=== PATIENT | female | born 1955 | race Caucasian/White ===

== ENCOUNTER 2019-02-07 15:43 | Emergency (ER) | payer BC, SELFPAY ==
--- NOTE | 2019-02-07 15:52 | NUR.NOTE ---
yesterday morning pt noticed buringin in both eyes reddnes and tears. mt has not attempted to rinse eyes. pt did start new antibiotic 12 hrs prior to eye problem
[2019-02-07 15:55] VITALS: BP 125/81; PULSE 85; RESP 17; TEMP 37.6; O2SAT 95
--- NOTE | 2019-02-07 16:17 | W.ED.GENAD ---
Discharge Plan Disposition Patient Disposition: HOME Condition: Stable Discharge Details Chief Complaint: EyeProblem Clinical Impression: Conjunctivitis Primary Care Provider: None,None ED Provider: Phillip Kirkland Home Meds and New Rx's Prescriptions: Continued nitrofurantoin monohyd/m-cryst 100 mg Capsule 100 mg PO Q12H RF: 0 Discharge Instructions Instructions: Conjunctivitis (ED) Additional Instructions: Please purchase [id number] dry reddened eyes drops and use as directed on packaging. If you start noticing crusting of your eyes and mucus drainage please start the antibiotic ointment as recommended. Please refrain from using her contacts for the 5 days and clean them well. Follow-up with your local journal box inspector for reassessment as needed. Referrals: Primary Care Provider [Outside] (As needed for reassessment) Discharge Data Discharge Date/Time-TO BE ENTERED AT DEPARTURE: 02/07/19 17:35 Medical Decision Making Patient presenting to the emergency department for chief complaint of red itchy irritated eyes. Patient states that yesterday morning this started to occur approximately 20 minutes after putting in her contacts. 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 Patient denies any fever chills, loss of vision, headache, or other focal neurological deficits or changes. Physical exam shows bilateral irritated sclera with injection and mild conjunctival erythema otherwise no exudates, and otherwise unremarkable exam. Question of irritant conjunctivitis given this occurred with contact lens use but patient did state that she remove the lenses and it did seem to help versus bacterial source I did have patient's eyes irrigated after numbing with tetracaine. Patient did state that this did seem to improve her symptoms. Patient was encouraged to use ifca-ggs-[id number] drops for her eyes but given that she is out of town and has no close follow-up patient was given erythromycin ointment and informed that she should use this if her symptoms worsen, she starts having purulent drainage or exudates, or not improving on the eyedrops. Patient was encouraged not to use contact lenses for the next 5 days and to thoroughly clean them and disinfect them as she reports they are not disposable. Patient to follow-up with primary care or ophthalmology when she returns home. After discussion of diagnosis and plan of care patient has no further needs, questions, or concerns and states clear understanding to return to the emergency department for any worsening symptoms. HPI General Mode of arrival: ambulatory. Date/Time Provider Initiated Documentation: 02/07/19 15:46. Limitations to Documentation: no limitations. Information obtained by: patient and RN notes reviewed. History of Present Illness 63 year old F presents to the emergency department with the chief complaint of eye discomfort/irritation, described as moderate, with intensity rated at 3. and is localized to the eyes. Patient started experiencing this day(s) (2) No relieving factors improve symptom(s), Patient did receive the following treatments prior to arrival, none Related Data Home Medications Medication Instructions Recorded Confirmed nitrofurantoin monohyd/m-cryst 100 mg PO Q12H 02/07/19 02/07/19 General Stated Complaint: EyeProblem ESPINOZA: 4 Review of Systems Constitutional Denies chills, Denies fever(s) and Denies headache(s) Eyes Reports as per HPI, Reports blurry vision, Denies change in vision, Denies eye discharge, Reports irritation, Reports itchy eyes, Denies eye pain, Reports requires corrective lenses and Denies seeing flashes ENT Denies headache(s) Integumentary/Breasts Denies rash Neurologic Denies headache(s) and Denies sensory deficit Allergic/Immunologic Reports itchy eyes PFSH Social History Smoking/Tobacco Use Status: Never Alcohol Intake: current Alcohol Intake frequency: a few times a month Drug use: Never Substance use type: does not use Do you feel safe at home: Yes Do you feel safe in your relationship?: Yes Exam Const General: cooperative, no acute distress and not ill appearing Orientation: alert, awake and oriented x3 Eyes Alignment and Position: alignment normal Periorbital: periorbital findings normal Eyelids: eyelids normal Conjunctivae: conjunctivae normal Sclera: scleral abnormality bilaterally scleral injection diffuse Cornea: corneas normal Pupils: PERRL EOM: EOM intact bilaterally and No nystagmus Resp Effort & Inspection: normal respiratory effort, able to speak in complete sentences and no respiratory distress Neuro General: alert, awake, oriented x3, gait normal, moves all extremities, no meningeal signs and no focal motor deficits Cranial Nerves: no nystagmus Course Vital Signs Temperature 37.6 C H 02/07/19 15:55 Pulse 85 02/07/19 15:55 Respiratory Rate 17 02/07/19 15:55 Blood Pressure 125/81 02/07/19 15:55 Pulse Oximetry 95 02/07/19 15:55 Temperature 37.6 C H 02/07/19 15:55 Temperature Source Skin 02/07/19 15:55 Pulse 85 02/07/19 15:55 Respiratory Rate 17 02/07/19 15:55 Blood Pressure 125/81 02/07/19 15:55 Blood Pressure Position Supine 02/07/19 15:55 Pulse Oximetry 95 02/07/19 15:55 Oxygen Delivery Method Room Air 02/07/19 15:55 Oxygen Flow Rate 0 02/07/19 15:55 Pain Level 3 02/07/19 15:55
--- NOTE | 2019-02-07 16:21 | ED.GENADUL_ITS ---
Discharge Plan Disposition Patient Disposition: HOME Condition: Stable Discharge Details Chief Complaint: EyeProblem Clinical Impression: Conjunctivitis Primary Care Provider: None,None ED Provider: Phillip Kirkland Home Meds and New Rx's Prescriptions: Continued nitrofurantoin monohyd/m-cryst 100 mg Capsule 100 mg PO Q12H RF: 0 Discharge Instructions Instructions: Conjunctivitis (ED) Additional Instructions: Please purchase hywh-shg-wqhmcjy dry reddened eyes drops and use as directed on packaging. If you start noticing crusting of your eyes and mucus drainage please start the antibiotic ointment as recommended. Please refrain from using her contacts for the 5 days and clean them well. Follow-up with your local certified professional controller for reassessment as needed. Referrals: Primary Care Provider [Outside] (As needed for reassessment) Discharge Data Discharge Date/Time-TO BE ENTERED AT DEPARTURE: 02/07/19 17:35 Medical Decision Making Patient presenting to the emergency department for chief complaint of red itchy irritated eyes. Patient states that yesterday morning this started to occur approximately 20 minutes after putting in her contacts. 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 Patient denies any fever chills, loss of vision, headache, or other focal neurological deficits or changes. Physical exam shows bilateral irritated sclera with injection and mild conjunctival erythema otherwise no exudates, and otherwise unremarkable exam. Question of irritant conjunctivitis given this occurred with contact lens use but patient did state that she remove the lenses and it did seem to help versus bacterial source I did have patient's eyes irrigated after numbing with tetracaine. Patient did state that this did seem to improve her symptoms. Patient was encouraged to use uvlr-yhh-hzuiwrl drops for her eyes but given that she is out of town and has no close follow-up patient was given erythromycin ointment and informed that she should use this if her symptoms worsen, she starts having purulent drainage or exudates, or not improving on the eyedrops. Patient was encouraged not to use contact lenses for the next 5 days and to thoroughly clean them and disinfect them as she reports they are not disposable. Patient to follow-up with primary care or ophthalmology when she returns home. After discussion of diagnosis and plan of care patient has no further needs, questions, or concerns and states clear understanding to return to the emergency department for any worsening symptoms. HPI General Mode of arrival: ambulatory . Date/Time Provider Initiated Documentation: 02/07/19 15:46 . Limitations to Documentation: no limitations . Information obtained by: patient and RN notes reviewed . History of Present Illness 63 year old F presents to the emergency department with the chief complaint of eye discomfort/irritation, described as moderate, with intensity rated at 3. and is localized to the eyes. Patient started experiencing this day(s) (2) No relieving factors improve symptom(s), Patient did receive the following treatments prior to arrival, none Related Data Home Medications Medication Instructions Recorded Confirmed nitrofurantoin monohyd/m-cryst 100 mg PO Q12H 02/07/19 02/07/19 General Stated Complaint: EyeProblem ESPINOZA: 4 Review of Systems Constitutional Denies chills, Denies fever(s) and Denies headache(s) Eyes Reports as per HPI, Reports blurry vision, Denies change in vision, Denies eye discharge, Reports irritation, Reports itchy eyes, Denies eye pain, Reports requires corrective lenses and Denies seeing flashes ENT Denies headache(s) Integumentary/Breasts Denies rash Neurologic Denies headache(s) and Denies sensory deficit Allergic/Immunologic Reports itchy eyes PFSH Social History Smoking/Tobacco Use Status: Never Alcohol Intake: current Alcohol Intake frequency: a few times a month Drug use: Never Substance use type: does not use Do you feel safe at home: Yes Do you feel safe in your relationship?: Yes Exam Const General: cooperative, no acute distress and not ill appearing Orientation: alert, awake and oriented x3 Eyes Alignment and Position: alignment normal Periorbital: periorbital findings normal Eyelids: eyelids normal Conjunctivae: conjunctivae normal Sclera: scleral abnormality bilaterally scleral injection diffuse Cornea: corneas normal Pupils: PERRL EOM: EOM intact bilaterally and No nystagmus Resp Effort & Inspection: normal respiratory effort, able to speak in complete sentences and no respiratory distress Neuro General: alert, awake, oriented x3, gait normal, moves all extremities, no meningeal signs and no focal motor deficits Cranial Nerves: no nystagmus Course Vital Signs Temperature 37.6 C H 02/07/19 15:55 Pulse 85 02/07/19 15:55 Respiratory Rate 17 02/07/19 15:55 Blood Pressure 125/81 02/07/19 15:55 Pulse Oximetry 95 02/07/19 15:55 Temperature 37.6 C H 02/07/19 15:55 Temperature Source Skin 02/07/19 15:55 Pulse 85 02/07/19 15:55 Respiratory Rate 17 02/07/19 15:55 Blood Pressure 125/81 02/07/19 15:55 Blood Pressure Position Supine 02/07/19 15:55 Pulse Oximetry 95 02/07/19 15:55 Oxygen Delivery Method Room Air 02/07/19 15:55 Oxygen Flow Rate 0 02/07/19 15:55 Pain Level 3 02/07/19 15:55
[2019-02-07] MEDS: Tetracaine 0.5% 4 ML BTL (17:23)
[2019-02-07] MEDS: Erythromycin Ophth Oint 3.5 GM TUBE OP (17:35)
[2019-02-07 17:36] VITALS: BP 125/81; PULSE 85; RESP 17; TEMP 37.5; O2SAT 95
== END 2019-02-07 17:35 | disposition home or self-care (01) ==
PROVIDERS: Emergency Provider Nurse Practitioner Family
DX: H10.9 Unspecified conjunctivitis (principal)
CPT/HCPCS: 99283

== ENCOUNTER 2022-09-23 18:24 | Emergency (ER) | payer MEDICARE, SELFPAY ==
[2022-09-23 18:28] VITALS: BP 139/74; PULSE 97; RESP 18; TEMP 36.9; O2SAT 97
--- NOTE | 2022-09-23 19:02 | W.ED.GENAD ---
Discharge Plan Disposition Patient Disposition: Home Condition: Good Discharge Details Clinical Impression: Otitis media, Sinusitis, Cellulitis, Abscess Primary Care Provider: None,None ED Provider: Leeanna Mcfarlane Discharge Instructions Instructions: Amoxicillin/Clavulanate Potassium (By mouth), Ear Infection (ED), Abscess (ED) Additional Instructions: Your exam is concerning for an ear infection as well small area of abscess and cellulitis on the right side of your back. Please stop the azithromycin and use the Augmentin as prescribed. To help prevent any GI upset, please take with food and continue with your probiotic. Please continue to encourage hydration. You may use Tylenol and ibuprofen as needed for discomfort. Please take as directed on the packaging. This can be quite successful and they are taking at the same time. In regard to the area on her back, this is opened with a needle today and this antibiotic should cover any continued infection. Please keep covered with a Band-Aid to help prevent any further rubbing from your clothing . However, please take the bandage off and take a shower and clean with running water and soap. Please follow-up with your primary care in 1 week for reevaluation. If you develop any new or worsening symptoms please seek care urgently once again. Discharge Data Discharge Date/Time-TO BE ENTERED AT DEPARTURE: 09/23/22 19:37 Medical Decision Making Patient is a pleasant 67-year-old female, accompanied by her , with chief complaint of right ear pain. She reports that about 11 days ago she began having right Sinus pain. She states that she was started on azithromycin yesterday. States that despite this, pain has persisted and now she has severe right ear pain. Prior to this sinus pain and she reports that she had a common cold. Her cough and congestion has completely cleared. She denies any recent fevers or chills. Also endorsing a infection to the right side of her back. States that began 2 days ago. On exam, patient appears nontoxic. Vital signs are stable. She has a bulging erythematous right tympanic membrane with the patient purulent discharge behind the TM. The left is clear. She continues to have pain over the right maxillary sinus. ENT exam and lung exam otherwise normal. She does not have a small 6 mm abscess on the right side of her back with a small area of surrounding erythema. Tender to the touch. No discharge able to be expressed. Plan to transition the patient off of the azithromycin and onto Augmentin as this will likely work better for her. She does have penicillin listed as an allergy but reports that that typically all antibiotics can cause some GI upset. Prefers to use azithromycin for this reason. However, I do not believe with the sinusitis and otitis or cellulitis and that this is sufficient to cover these things. Considered other antibiotics but given their side effect profile as well, I feel that Augmentin is likely the best course for her. She is never had a true allergic reaction to the penicillin. Advised that she eat when taking the antibiotic as well as take a probiotic. Regard to the small abscess, patient I discussed risk/benefits as well as expected procedural steps associated with needle aspiration and slight opening with an 18-gauge. Patient voices understanding and wishes to proceed. Please see procedure note. Patient tolerated this well. We did discuss the use of anesthetic prior but patient would prefer just to have needle aspiration completed. Is to perform using standard sterile technique. Patient tolerated that well and a sterile bandage was placed over this. We will begin the patient on the Augmentin. Encourage that she continue with the probiotic. Encourage hydration. We discussed continued care of the small abscess. Encourage follow-up with primary care for reevaluation. Return precautions were discussed. I do want her to have the ear rechecked by her primary care in particular as she does have difficulty with hearing on the contralateral side. All of her questions and concerns were addressed and she is in agreement with this plan. Sign Out No HPI General Date/Time Provider Initiated Documentation: 09/23/22 19:02. Limitations to Documentation: no limitations. Information obtained by: patient, family and RN notes reviewed. History of Present Illness 67 year old F presents to the emergency department with the chief complaint of right ear pain, described as severe, Quality is described as stabbing, and is localized to the face (right ear). Patient reports no radiation. Patient started experiencing this day(s) (1) and it has been constant. No relieving factors improve symptom(s), No exacerbating factors reported . Patient notes other (viral URI with sinusitis recently, on abx). Patient did receive the following treatments prior to arrival, other (on Azithromycin for sinusitis, started yesterday) Related Data Allergies Allergy/AdvReac Type Severity Reaction Status Date / Time Penicillins AdvReac Unverified 09/23/22 18:36 General Stated Complaint: GenMedical ESPINOZA: 4 Review of Systems Constitutional Constitutional: Reports as per HPI and Denies headache(s) Eyes Eyes: Reports as per HPI, Denies eye discharge and Denies irritation ENT Ears, Nose, Mouth, and Throat: Reports as per HPI and Denies headache(s) Cardiovascular Cardiovascular: Reports as per HPI, Denies chest pain and Denies dyspnea Respiratory Respiratory: Reports as per HPI and Denies dyspnea Gastrointestinal Gastrointestinal: Reports as per HPI, Denies change in bowel habits, Denies nausea and Denies vomiting Integumentary/Breasts Skin/Breast: Reports as per HPI and Denies rash Neurologic Neurologic: Reports as per HPI and Denies headache(s) PFSH All Active Problems (Updated 09/23/22 @ 19:29 by VIRAJ Pineda) Otitis media (Acute) Sinusitis (Acute) Cellulitis (Acute) Abscess (Acute) Social History Smoking/Tobacco Use Status: Never Smoking risk assessment performed?: Yes Alcohol Intake: current Alcohol Intake frequency: a few times a month Drug use: Never Substance use type: does not use Do you feel safe at home: Yes Do you feel safe in your relationship?: Yes Exam Const General: cooperative, healthy appearing, uncomfortable (holding right ear), no acute distress, well developed and well groomed Nutritional Appearance: average body habitus and well nourished Orientation: alert and awake [facility] Head: normal to inspection, normocephalic and atraumatic Ears: hearing grossly normal bilaterally, external ears normal, right TM abnormal (bulging, erythematous right TM), TM normal on the left and mastoids normal General nose exam: external nose normal and nares normal Face and sinus: normal facial exam, sinuses nontender and face symmetric Mouth: oral mucosae normal, lip normal, tongue normal, oropharynx normal and moist mucous membranes Teeth and gingiva: dentition normal Throat: posterior oropharynx normal, tonsils normal and uvula midline Eyes General: appearance normal, both eyes and all related structures Neck Neck: normal visual inspection, full ROM, no lymphadenopathy and no meningeal signs Resp Effort & Inspection: normal respiratory effort, able to speak in complete sentences and no respiratory distress Auscultation: clear to auscultation bilaterally, no rales, no rhonchi and no wheezes Cardio Rate: regular rate Rhythm: regular rhythm Heart Sounds: S1 normal and S2 normal Back/Spine/Pelvis Back/spine/pelvis image: 1. Area of erythema with central raised, white area. Fluctuant and tender. <1cm in diameter. Skin General skin exam: erythema Neuro General: patient alert and patient awake Cognition: normal cognition Speech: speech normal Gait: normal gait Psych Appearance: grossly normal and well kempt Mental Status: mental status grossly normal Speech and Movement: speech and movement normal Course Vital Signs Vital signs: Vital Signs Temperature 36.9 C 09/23/22 18:28 Pulse 97 H 09/23/22 18:28 Respiratory Rate 18 09/23/22 18:28 Blood Pressure 139/74 09/23/22 18:28 Pulse Oximetry 97 09/23/22 18:28 Temperature 36.9 C 09/23/22 18:28 Temperature Source Oral 09/23/22 18:28 Pulse 97 H 09/23/22 18:28 Respiratory Rate 18 09/23/22 18:28 Respiratory Effort Non-Labored 09/23/22 18:34 Blood Pressure 139/74 09/23/22 18:28 Blood Pressure Position Sitting 09/23/22 18:28 Pulse Oximetry 97 09/23/22 18:28 Oxygen Delivery Method Room Air 09/23/22 18:28 Oxygen Flow Rate 0 09/23/22 18:28 Pain Level 9 09/23/22 18:28 Procedures Abscess I/D Site: Back Side (if applicable): Right Sedation/analgesia: None Local Anesthetic: Other Anesthetic (none) Technique: Needle Aspiration Amount of fluid expressed (mL): 1 Irrigation: No Packing used?: None Complications: Other (none)
[2022-09-23] MEDS: Acetaminophen 500 MG TAB 1000 MG PO (19:35)
[2022-09-23] MEDS: Amox. 875/Clav. 125, 2 TABS/BTL 1 TAB PO (19:35)
--- NOTE | 2022-09-23 19:35 | NUR.NOTE ---
Referral faxed to [facility], patient new to the area and told provider she has had her records sent to [facility] but won't be seen for quite some time. Patient is hearing impaired and has an otitis media, sinusitis and cellulitis. Provider would like her seen within the next week if at all possible.Nursing Note:
== END 2022-09-23 19:37 | disposition home or self-care (01) ==
PROVIDERS: Emergency Provider Physician Assistant
DX: H66.91 Otitis media, unspecified, right ear (principal); L03.312 Cellulitis of back [any part except buttock and flank]; L02.212 Cutaneous abscess of back [any part, except buttock and flank]
CPT/HCPCS: 10060; 99283

== ENCOUNTER 2022-12-06 01:52 | Outpatient (CLI) | payer MEDICARE, SELFPAY ==
[2022-12-06 15:38] LABS: Abs Immature Grans 0.03 10^3/uL (0.0-0.06); Absolute Basophil Count 0.02 10^3/uL (0.0-0.2); Absolute Eosinophil Count 0.08 10^3/uL (0.0-0.7); Absolute Lymphocyte Count 1.59 10^3/uL (1.2-3.4); Absolute Monocyte Count 0.28 10^3/uL (0.1-0.8); Absolute Neutrophil Count 4.07 10^3/uL (1.2-6.7); Basophils % 0.3; Eosinophils % 1.3; HCT 46.6 % (36.0-46.0); HGB 15.7 g/dL (11.2-15.7); Immature Grans % 0.5; Lymphocytes % 26.2; MCH 31.2 pg (27.0-33.0); MCHC 33.7 % (32.0-36.0); MCV 93 fL (80-95); MPV 8.6 fL (8.0-11.0); Monocytes % 4.6; Neutrophils % 67.1; Platelet Count 178 10^3/uL (130-400); RBC 5.04 10^6/uL (3.93-5.22); RDW-SD 41.2 fL; WBC 6.07 10^3/uL (4.4-10.8)
[2022-12-06 17:23] LABS: ALT 23 U/L (14-59); AST 20 U/L (15-37); Albumin 3.9 g/dL (3.4-5.0); Alkaline Phosphatase 71 U/L (46-116); Anion Gap 8.3 mmol/L (3-11); BUN 11 mg/dL (7-18); Bilirubin, Total 0.9 mg/dL (0.2-1.0); CO2 26.7 mmol/L (21.0-32.0); CREATININE 0.8 mg/dL (0.55-1.02); Chloride 104 mmol/L (98-107); Estimated GFR 80.71 (mL/min/1.73m2); Glucose 78 mg/dL (74-106); Potassium 3.7 mmol/L (3.5-5.1); Sodium 139 mmol/L (136-145); Total Protein 7.2 g/dL (6.4-8.2)
== END 2022-12-06 01:53 | disposition home or self-care (01) ==
LOC: LBO 01:52
PROVIDERS: PCP Family Medicine; Visit Provider Family Medicine
DX: K21.9 Gastro-esophageal reflux disease without esophagitis (principal)
CPT/HCPCS: 36415; 80053; 80061; 85025

== ENCOUNTER → 2023-08-31 02:44 | Outpatient (CLI) | payer MEDICARE, SELFPAY ==
--- NOTE | 2023-08-31 | DI.MAMMO_ITS ---
Exam(s) MAMMO SCREENING EXAM: MAMMO SCREENING CLINICAL HISTORY: SCREENING, Z12.31 TECHNIQUE: Mammograms were interpreted according to the usual protocol including computer analysis w [employer] CAD system, tomosynthesis and C-view imaging. COMPARISON: 2017 from [facility] in [facility] FINDINGS: The breasts are composed of heterogeneously dense fibroglandular densities, Breast Density category C . No suspicious masses or suspicious microcalcifications are seen. No skin thickening or abnormal axillary lymph nodes are seen. There has been no significant change from prior exam. IMPRESSION: BI-RADS Category 1, Negative mammogram. Yearly screening mammography is recommended. Breast Density Category C, heterogeneously Dense. The mammogram demonstrates the patient's breast tissue is dense. Dense breast tissue is very common a nd is not abnormal but dense breast tissue can make it harder to find cancer on a mammogram. Also, de nse breast tissue may increase breast cancer risk. This information about the result of the mammogram report was provided to the patient to raise their awareness. Use this report when you speak with the patient about their risks for breast cancer, which includes their family history. At that time, you may recommend additional screening tests (Ultrasound or MRI) as they might be useful based on their r isk. A negative radiographic report should not delay biopsy if a dominant or clinically suspicious mass is present. Up to ten percent of cancers are not identified on mammography. A negative report may reinforce clinical impression. Adenosis and dense breasts may obscure an underlying neoplasm. False positive reports average 6 to 10%.
== END ==
PROVIDERS: PCP Family Medicine; Visit Provider Family Medicine
DX: Z12.31 Encounter for screening mammogram for malignant neoplasm of breast (principal); R92.333 Mammographic heterogeneous density, bilateral breasts
CPT/HCPCS: 77063; 77067

== ENCOUNTER 2024-10-02 02:22 | Outpatient (CLI) | payer MEDICARE, SELFPAY ==
--- NOTE | 2024-10-02 | DI.DEXA_ITS ---
Exam(s) XR DEXA BONE DENSITY W/WO ELIGIO EXAM: XR DEXA BONE DENSITY W/WO ELIGIO CLINICAL HISTORY: Asymptomatic menopausal state, Z78.0; screening for osteoporosis TECHNIQUE: [employer] C densitometer analysis of left hip, lumbar spine and left forearm. Lat eral survey image of the thoracic and lumbar spine. COMPARISON: No exams were available for comparison FINDINGS: Lateral view of the thoracic and lumbar spine shows mild anterior wedging of mid to lower thoracic ve rtebral bodies. Bone mineral density measurements of the lumbar spine correspond to a total T-score of -3.2, in the osteoporotic range. Bone mineral density measurements of the left hip correspond to a total T-score of negative 2.2. Th e femoral neck T-score is -1.9, in the osteopenic range.. Theleft forearm bone mineral density measurements correspond to a T-score of the distal 3rd of -0.3, in the normal range. IMPRESSION: Osteoporosis of the lumbar spine. Mild anterior wedging of mid to lower thoracic vertebral bodies. Osteopenia of the hip. Normal bone mineral density of the forearm.
== END 2024-10-02 02:42 ==
LOC: DI 02:22
PROVIDERS: PCP Family Medicine; Visit Provider Family Medicine
DX: Z78.0 Asymptomatic menopausal state (principal); Z13.820 Encounter for screening for osteoporosis; M85.89 Other specified disorders of bone density and structure, multiple sites
CPT/HCPCS: 77080